=== PATIENT | male | born 1985 | race Caucasian/White ===

== ENCOUNTER 2018-09-11 10:10 | Emergency (ER) | payer SELFPAY ==
[~2018-09-11] VITALS: Ht 170.2 cm; Wt 68.0 kg
[2018-09-11] MEDS ORDERED: BACITRACIN 0.9 GM PACKET OINTMENT TP ONE (10:30)
[2018-09-11] MEDS ORDERED: PERTUSS(ACELL),DIPH,TET VAC/PF 0.5 ML VIAL IM ONE (10:30)
[2018-09-11 10:33] VITALS: BP 109/81
== END 2018-09-11 14:00 | disposition home or self-care (01) ==
LOC: EMS 10:10 → EDBD 10:10 → EMS 14:00
DX: Z02.89 Encounter for other administrative examinations (principal); S02.2XXA Fracture of nasal bones, initial encounter for closed fracture; S02.40DA Maxillary fracture, left side, initial encounter for closed fracture; S01.81XA Laceration without foreign body of other part of head, initial encounter; Y35.893A Legal intervention involving other specified means, suspect injured, initial encounter; Y93.89 Activity, other specified; Y92.89 Other specified places as the place of occurrence of the external cause; Y99.8 Other external cause status
CPT/HCPCS: 70450; 70486; 72125; 90715; 99291